=== PATIENT | female | born 1985 | race Caucasian/White ===

== ENCOUNTER 2020-08-19 05:50 | Inpatient (IN) ==
[2020-08-19] MEDS ORDERED: ONDANSETRON 4 MG/2 ML VIAL IV PRN (07:12)
[2020-08-19] MEDS ORDERED: miSOPROStoL 200 MCG TABLET VAG PRN (07:12)
[2020-08-19] MEDS ORDERED: BUTORPHANOL 2 MG/ML VIAL IV PRN (07:12)
[2020-08-19] MEDS ORDERED: LACTATED RINGERS 250 ML IV ONE (07:12)
[2020-08-19] MEDS ORDERED: LIDOCAINE 1% 50 ML VIAL MISC INJ ONE (07:12)
[2020-08-19] MEDS ORDERED: CARBOPROST TROMETHAMINE 250 MCG/ML AMP IM PRN (07:12)
[2020-08-19 07:30] LABS: Basophils % 0.1 % (0.0-0.8); Eosinophils # 0.1 10*3/uL (0.0-0.87); Hemoglobin 12.3 GM/DL (12.0-16.0); Immature Granulocytes % 0.8 %; Immature Granulocytes Absolute 0.11 #; Lymphocytes # 2.6 10*3/uL (1.4-4.0); Lymphocytes % 18.4 % (21.3-54.2); Mean Corpuscular HGB Conc 33.2 GM/DL (32-36); Mean Platelet Volume 9.8 FL (9.6-12.0); Monocytes % 6.7 % (1.7-12.7); Platelet Count 227 T/CUMM (130-400); Red Cell Distribution Width 14.6 % (9.3-17.3)
[2020-08-19] MEDS ORDERED: OXYTOCIN/LR 20 UNIT/1,000 ML BAG IV SCH (07:30)
[2020-08-19] MEDS: LACTATED RINGERS 1,000 ML IV SCH ×2 (07:32→15:45)
[2020-08-19] MEDS ORDERED: AMPICILLIN INJ 2,000 MG in SODIUM CHLORIDE 0.9% 100 ML IV ONE (07:40)
[2020-08-19 08:06] LABS: PT Patient Result 10.3 SECS (9.8-11.9); Partial Thromboplastin Time 24.7 SECS (23.9-33.8)
[2020-08-19] MEDS ORDERED: FAMOTIDINE 20 MG/2 ML VIAL IV ONE (08:34)
[2020-08-19] MEDS ORDERED: ePHEDrine 50 MG/ML VIAL IV PRN (08:34)
[2020-08-19] MEDS ORDERED: LACTATED RINGERS 1,000 ML IV ONE (08:34)
[2020-08-19] MEDS ORDERED: CITRIC ACID/SODIUM CITRATE 30 ML UDCUP PO ONE (08:34)
[2020-08-19] MEDS ORDERED: PROMETHAZINE 25 MG/1 ML VIAL IM ONE (08:35)
[2020-08-19] MEDS ORDERED: hydrOXYzine HCL 25 MG/1 ML VIAL IM PRN (08:35)
[2020-08-19] MEDS ORDERED: NALOXONE 0.4 MG/ML VIAL IV PRN (08:35)
[2020-08-19] MEDS ORDERED: diphenhydrAMINE 50 MG/1 ML VIAL IV PRN ×2 (08:35)
[2020-08-19] MEDS ORDERED: LACTATED RINGERS 1,000 ML IV SCH ×2 (09:00)
[2020-08-19] MEDS ORDERED: BUTORPHANOL 1 MG/ML VIAL IV PRN (09:50)
[2020-08-19] MEDS: fentaNYL 2 MCG/ROPIV 0.2% EPID 100 ML EPIDURAL SCH ×2 (12:23→19:04)
[2020-08-19] MEDS: AMPICILLIN INJ 1,000 MG in SODIUM CHLORIDE 0.9% 100 ML IV SCH ×3 (12:35→22:44)
[2020-08-19 13:53] LABS: Bilirubin,Urine Negative (Negative); Blood, Urine Negative (Negative); Glucose,Urine (UA) Negative (Negative); Ketones,Urine Negative (Negative); Mucus,Urine Few /LPF (Occasional); Nitrite,Urine Negative (Negative); Protein,Urine 30 MG/DL; RBC,Urine 2 /HPF (0-4); Squamous Epithelial Cell,Urine Occasional /HPF (0-10); Urine Appearance CLEAR (Clear); Urine Color Amber (Yellow); Urine Specific Gravity 1.028 (1.001-1.035); Urine Urobilinogen < 2.0 EU/DL (0.2-1.0); WBC,Urine 2 /HPF (0-6)
[2020-08-19] MEDS ORDERED: LIDOCAINE MPF 2% /EPI 20 ML VIAL ONE (20:30)
[2020-08-19] MEDS ORDERED: fentaNYL 100 MCG/2 ML VIAL ONE (20:30)
[2020-08-19] MEDS ORDERED: miSOPROStoL 200 MCG TABLET ONE (23:53)
[2020-08-19] MEDS ORDERED: METHYLERGONOVINE 0.2 MG/1 ML AMP ONE (23:53)
[2020-08-19] MEDS ORDERED: TRANEXAMIC ACID 1,000 MG/10 ML VIAL ONE ×2 (23:53→23:54)
[2020-08-19] MEDS ORDERED: SODIUM CHLORIDE 0.9% 0 ML IV ONE (23:54)
[2020-08-19] MEDS ORDERED: CARBOPROST TROMETHAMINE 250 MCG/ML AMP IM ONE (23:54)
[2020-08-20] MEDS ORDERED: ACETAMINOPHEN 325 MG TABLET PO PRN (00:14)
[2020-08-20] MEDS ORDERED: BENZOCAINE 20%/MENTHOL 0.5% SPRAY 56 GM CAN TOP PRN (00:14)
[2020-08-20] MEDS ORDERED: OXYTOCIN/LR 20 UNIT/1,000 ML BAG IV ONE (00:14)
[2020-08-20] MEDS ORDERED: DIPH/TET/ACEL PERT BOOSTER VACCINE 0.5 ML VIAL IM ONE (00:14)
[2020-08-20] MEDS ORDERED: ONDANSETRON 4 MG/2 ML VIAL IV PRN (00:14)
[2020-08-20] MEDS ORDERED: BISACODYL 10 MG SUPP RECTAL PRN (00:14)
[2020-08-20] MEDS ORDERED: WITCH HAZEL PADS 100/JAR TOP PRN (00:14)
[2020-08-20] MEDS ORDERED: HYDROCORTISONE 2.5% RECTAL CREAM 30 GM TUBE TOP PRN (00:14)
[2020-08-20] MEDS ORDERED: oxyCODONE/ACETAMINOPHEN 5-325 MG TABLET PO PRN ×2 (00:14)
[2020-08-20] MEDS ORDERED: MEASLES/MUMPS/RUBELLA VACCINE 0.5 ML VIAL SUBCUT ONE (00:14)
[2020-08-20] MEDS ORDERED: RHO(D) IMMUNE GLOBULIN 300 MCG SYRINGE IM ONE (00:14)
[2020-08-20] MEDS ORDERED: LANOLIN 50% CREAM 0.3 OZ TUBE TOP PRN (00:14)
[2020-08-20 00:25] LABS: Cord Arterial Blood HCO3 25.5 MMOL/L
[2020-08-20 00:28] LABS: Cord Venous Blood HCO3 23.8 MMOL/L; Cord Venous Blood PCO2 49.3 MMHG; Cord Venous Blood PO2 27.3 MMHG
[2020-08-20 05:55] LABS: Basophils % 0.2 % (0.0-0.8); Eosinophils % 0.3 % (0.00-10.9); Hematocrit 31.9 VOL% (35.7-47.0); Hemoglobin 10.8 GM/DL (12.0-16.0); Immature Granulocytes % 0.5 %; Immature Granulocytes Absolute 0.08 #; Lymphocytes # 2.1 10*3/uL (1.4-4.0); Lymphocytes % 13.3 % (21.3-54.2); Mean Corpuscular HGB Conc 33.9 GM/DL (32-36); Mean Corpuscular Volume 85.3 FL (87-102); Mean Platelet Volume 10.2 FL (9.6-12.0); Monocytes % 5.8 % (1.7-12.7); Neutrophils % 79.9 % (38.7-73.9); Platelet Count 225 T/CUMM (130-400); Red Blood Count 3.74 MC/CUMM (3.8-5.5); Red Cell Distribution Width 14.4 % (9.3-17.3); White Blood Count 15.9 T/CUMM (4-12)
[2020-08-20] MEDS: IBUPROFEN 800 MG TABLET PO PRN ×3 (07:40→21:22)
[2020-08-20] MEDS ORDERED: ACEBUTOLOL 200 MG CAPSULE PO SCH ×2 (09:00→21:00)
[2020-08-20] MEDS: DOCUSATE SODIUM 100 MG CAPSULE PO SCH ×2 (10:00→21:22)
[2020-08-21] MEDS: IBUPROFEN 800 MG TABLET PO PRN (04:17)
[2020-08-21 08:43] VITALS: BP 130/68
[2020-08-21] MEDS: DOCUSATE SODIUM 100 MG CAPSULE PO SCH (09:47)
== END 2020-08-21 11:10 | disposition home or self-care (01) | DRG 807 ==
LOC: N.LDOUT 05:50 → N.LD 05:51 → N.OB 08-20 03:15
PROVIDERS: ADMIT Obstetrics & Gynecology; ATTEND Obstetrics & Gynecology